=== PATIENT | female | born 1985 ===

== ENCOUNTER 2021-02-10 23:43 | Emergency (ER) | payer OTHER, MEDICAID, SELFPAY ==
[2021-02-10 23:40] VITALS: BMI 19.3
[2021-02-10 23:53] VITALS: BP 131/99; PULSE 88; RESP 18; TEMP 36.8; O2SAT 100
--- NOTE | 2021-02-11 00:36 | ED_ITS ---
HPI - Psych <Rosas Boo MD - Last Filed: 02/11/21 17:57> General Chief Complaint: Psychiatric Symptoms Stated Complaint: Strange behavior, Cobative Time Seen by Provider: 02/10/21 23:53 Source: patient and police Mode of arrival: Ambulatory History of Present Illness HPI Narrative: Patient brought in by police for altered mental status. [employer]ba business development officer gave me a report that [facility] received call that a car was driving the wrong way [address]. It was speeding and going through stop signs. sba business development officer states that patient was yelling out the window at him during pursued. Officer notice a [place] headlight movement coming towards him, the vehicle then but least word into the center turn fili almost hitting the officers patrol car. Officer said that patient was yelling that people were try ing to kill her and that her daughter was . She did press puller and stated to him that she is being chased and followed. She pointed to a car near them and states that they was chasing her. sba business development officer asked the occupant of the other vehicle and they stated they have no idea who the patient is. Patient then drove away from the police officers and they had to pursue her again. At 1 point. Spikes were thrown on the road to stop her car. At 1 point officer stated that patient spoke to her in a way that made him bleed she was no longer speaking to him and actually try to communicate with her child. While at the police department she told the officer that she was acting like a psycho and needed to speak to someone at the hospital. The police report also noted that she saw things that were not there. They were concerned possibly patient was under the influence and brought her to the station. Breathalyzer was normal. She asked to use the restroom before being brought here. Officer stated that she went from a erratic behavior to talking in different voice tones, she did tell them that next week would be the birthday of her daughter that this past September. February 22 would be her birthday. She also stated that similar event happened with the loss of her very 1st child a son. Speaking with patient myself, she does recall what happened. She denies SI or HI. She states she was released from [facility] 2 weeks ago for substance abuse. She states she has not taken anything or done anything since then. She states she is very anxious and very traumatized and emotional about the loss of her daughter. sba business development officer provided report. They note that she agrees to mental health treatment and that she still presents a danger to the public and herself. Police report is placed in her medical file Related Data Allergies Allergy/AdvReac Type Severity Reaction Status Date / Time No Known Drug Allergies Allergy Verified 02/11/21 00:13 Patient History <Rosas Boo MD - Last Filed: 02/11/21 17:57> Social History Smoking Status: Current every day smoker Smoking Status: Current every day smoker alcohol intake frequency: 0-2 drinks per day Substance Use Type: does not use Exam <Rosas Boo MD - Last Filed: 02/11/21 17:57> Initial Vital Signs Initial Vital Signs: Vital Signs Temperature 98.2 F 02/10/21 23:53 Pulse Rate 88 02/10/21 23:53 Respiratory Rate 18 02/10/21 23:53 Blood Pressure 131/99 H 02/10/21 23:53 Pulse Oximetry 100 02/10/21 23:53 <Roland Do DO - Last Filed: 02/11/21 13:08> Initial Vital Signs Initial Vital Signs: Vital Signs Temperature 98.2 F 02/10/21 23:53 Pulse Rate 88 02/10/21 23:53 Respiratory Rate 18 02/10/21 23:53 Blood Pressure 131/99 H 02/10/21 23:53 Pulse Oximetry 100 02/10/21 23:53 Course <Rosas Boo MD - Last Filed: 02/11/21 17:57> Course Course Narrative: 0700 s/o dr do, will need CRANBERRY GROWER eval and disposition, patient has been on a locked seclusion. Needs protocol face to face as well as reordering for seclusion Orders Ordered: ED Orders 02/11/21 09:14 Urinalysis and Microscopic Stat Urine Culture Stat Urine Drug Screen, Rapid Stat Vital Signs Vital signs: Vital Signs - 8 hr 02/11/21 13:21 Pulse Rate 98 H Respiratory Rate 24 Blood Pressure 132/98 H Pulse Oximetry 99 <Roland Do DO - Last Filed: 02/11/21 13:08> Orders Ordered: ED Orders 02/11/21 09:14 Urinalysis and Microscopic Stat Urine Culture Stat Urine Drug Screen, Rapid Stat Vital Signs Vital signs: Vital Signs - 8 hr 02/11/21 13:21 Pulse Rate 98 H Respiratory Rate 24 Blood Pressure 132/98 H Pulse Oximetry 99 MDM - Psych <Rosas Boo MD - Last Filed: 02/11/21 17:57> Lab Data Result diagrams: 02/11/21 00:32 02/11/21 00:32 Labs: Lab Results 02/11/21 02/11/21 02/11/21 Range/Units 00:32 00:32 00:32 WBC 6.5 (4.5-11.0) X10^3/uL RBC 3.92 L (4.0-5.2) X10^6/uL Hgb 12.0 (12.0-16.0) g/dL Hct 36.4 (36-46) % MCV 92.7 (80-100) fL MCH 30.6 (26-34) PG MCHC 33.0 (30-36) % RDW 13.6 (11.6-14.8) % Plt Count 324 (150-400) X10^3/uL Neut % (Auto) 69.5 (50-75) % Lymph % (Auto) 22.4 L (25-40) % Brooke % (Auto) 6.5 (3-14) % Eos % (Auto) 0.7 L (2-4) % Baso % (Auto) 0.9 (0-2) % Neut # (Auto) 4500 (3210-3496) /uL Lymph # (Auto) 1400 (3556-7294) /uL Brooke # (Auto) 400 (0-900) /uL Eos # (Auto) 0 (0-450) /uL Baso # (Auto) 100 (0-100) /uL Sodium 136 L (137-145) mmol/L Potassium 4.1 (3.4-5.1) mmol/L Chloride 100 (98-107) mmol/L Carbon Dioxide 30 (22-32) mmol/L BUN 11 (7-17) mg/dL Creatinine 0.59 (0.52-1.04) mg/dL Estimated GFR > 60.0 (>60) mL/min BUN/Creatinine Ratio 18.6 (6-22) Glucose 108 H (70-100) mg/dL Calcium 9.4 (8.4-10.2) mg/dL Total Bilirubin 0.2 (0.2-1.3) mg/dL AST 31 (14-36) IU/L ALT 29 (<35) IU/L Alkaline Phosphatase 73 (38-126) U/L Total Protein 7.5 (6.3-8.2) g/dL Albumin 4.4 (3.5-5.0) g/dL Globulin 3.1 (1.7-4.1) g/dL Albumin/Globulin Ratio 1.4 (1.0-2.8) TSH 1.43 (0.47-4.68) uIU/mL Urine Color Urine Appearance Urine pH (4.5-8.0) Ur Specific [place] (1.000-1.035) Urine Protein (Negative) Urine Glucose (UA) (Negative) g/dL Urine Ketones (NEGATIVE) Urine Occult Blood (Negative) Urine Nitrate (Negative) Urine Bilirubin (NEGATIVE) Urine Urobilinogen (0.2) E.U./dL Ur Leukocyte Esterase (NEGATIVE) Urine RBC (0-5/HPF) Urine WBC (0-5/HPF) Ur Squamous Epith Cells (0-5/HPF) Urine Bacteria (None) Ur Culture Indicated? Urine Test (Negative) U Opiates 300ng/mL cut (Negative) Ur Oxycodone Screen (Negative) Urine Methadone Screen (Negative) Ur Barbiturates Screen (Negative) U Tricyclic Antidepress (Negative) Ur Phencyclidine Scrn (Negative) Ur Amphetamines Screen (Negative) U Methamphetamines Scrn (Negative) Ur MDMA Scrn (Ecstasy) (Negative) U Benzodiazepines Scrn (Negative) Urine Cocaine Screen (Negative) U Marijuana (THC) Screen (Negative) Ethyl Alcohol < 10 ( - 10) mg/dL 02/11/21 02/11/21 02/11/21 Range/Units 08:55 09:14 09:14 WBC (4.5-11.0) X10^3/uL RBC (4.0-5.2) X10^6/uL Hgb (12.0-16.0) g/dL Hct (36-46) % MCV (80-100) fL MCH (26-34) PG MCHC (30-36) % RDW (11.6-14.8) % Plt Count (150-400) X10^3/uL Neut % (Auto) (50-75) % Lymph % (Auto) (25-40) % Brooke % (Auto) (3-14) % Eos % (Auto) (2-4) % Baso % (Auto) (0-2) % Neut # (Auto) (6765-1417) /uL Lymph # (Auto) (9652-1481) /uL Brooke # (Auto) (0-900) /uL Eos # (Auto) (0-450) /uL Baso # (Auto) (0-100) /uL Sodium (137-145) mmol/L Potassium (3.4-5.1) mmol/L Chloride (98-107) mmol/L Carbon Dioxide (22-32) mmol/L BUN (7-17) mg/dL Creatinine (0.52-1.04) mg/dL Estimated GFR (>60) mL/min BUN/Creatinine Ratio (6-22) Glucose (70-100) mg/dL Calcium (8.4-10.2) mg/dL Total Bilirubin (0.2-1.3) mg/dL AST (14-36) IU/L ALT (<35) IU/L Alkaline Phosphatase (38-126) U/L Total Protein (6.3-8.2) g/dL Albumin (3.5-5.0) g/dL Globulin (1.7-4.1) g/dL Albumin/Globulin Ratio (1.0-2.8) TSH (0.47-4.68) uIU/mL Urine Color Yellow Urine Appearance Cloudy Urine pH 6.5 (4.5-8.0) Ur Specific [place] 1.015 (1.000-1.035) Urine Protein Negative (Negative) Urine Glucose (UA) Negative (Negative) g/dL Urine Ketones Negative (NEGATIVE) Urine Occult Blood Trace-intact (Negative) Urine Nitrate Positive H (Negative) Urine Bilirubin Negative (NEGATIVE) Urine Urobilinogen 0.2 (0.2) E.U./dL Ur Leukocyte Esterase 1+ H (NEGATIVE) Urine RBC 1-5/hpf (0-5/HPF) Urine WBC 30-100/hpf H (0-5/HPF) Ur Squamous Epith Cells 1-5 /hpf (0-5/HPF) Urine Bacteria Many (>30) H (None) Ur Culture Indicated? Specimen cultured Urine Test Negative (Negative) U Opiates 300ng/mL cut Negative (Negative) Ur Oxycodone Screen Negative (Negative) Urine Methadone Screen Negative (Negative) Ur Barbiturates Screen Negative (Negative) U Tricyclic Antidepress Negative (Negative) Ur Phencyclidine Scrn Negative (Negative) Ur Amphetamines Screen Positive H (Negative) U Methamphetamines Scrn Positive H (Negative) Ur MDMA Scrn (Ecstasy) Negative (Negative) U Benzodiazepines Scrn Negative (Negative) Urine Cocaine Screen Negative (Negative) U Marijuana (THC) Screen Negative (Negative) Ethyl Alcohol ( - 10) mg/dL <Roland Do, DO - Last Filed: 02/11/21 13:08> Lab Data Attestation: I reviewed the patient's lab results. Labs: Lab Results 02/11/21 02/11/21 02/11/21 Range/Units 00:32 00:32 00:32 WBC 6.5 (4.5-11.0) X10^3/uL RBC 3.92 L (4.0-5.2) X10^6/uL Hgb 12.0 (12.0-16.0) g/dL Hct 36.4 (36-46) % MCV 92.7 (80-100) fL MCH 30.6 (26-34) PG MCHC 33.0 (30-36) % RDW 13.6 (11.6-14.8) % Plt Count 324 (150-400) X10^3/uL Neut % (Auto) 69.5 (50-75) % Lymph % (Auto) 22.4 L (25-40) % Brooke % (Auto) 6.5 (3-14) % Eos % (Auto) 0.7 L (2-4) % Baso % (Auto) 0.9 (0-2) % Neut # (Auto) 4500 (4133-4807) /uL Lymph # (Auto) 1400 (7924-3442) /uL Brooke # (Auto) 400 (0-900) /uL Eos # (Auto) 0 (0-450) /uL Baso # (Auto) 100 (0-100) /uL Sodium 136 L (137-145) mmol/L Potassium 4.1 (3.4-5.1) mmol/L Chloride 100 (98-107) mmol/L Carbon Dioxide 30 (22-32) mmol/L BUN 11 (7-17) mg/dL Creatinine 0.59 (0.52-1.04) mg/dL Estimated GFR > 60.0 (>60) mL/min BUN/Creatinine Ratio 18.6 (6-22) Glucose 108 H (70-100) mg/dL Calcium 9.4 (8.4-10.2) mg/dL Total Bilirubin 0.2 (0.2-1.3) mg/dL AST 31 (14-36) IU/L ALT 29 (<35) IU/L Alkaline Phosphatase 73 (38-126) U/L Total Protein 7.5 (6.3-8.2) g/dL Albumin 4.4 (3.5-5.0) g/dL Globulin 3.1 (1.7-4.1) g/dL Albumin/Globulin Ratio 1.4 (1.0-2.8) TSH 1.43 (0.47-4.68) uIU/mL Urine Color Urine Appearance Urine pH (4.5-8.0) Ur Specific [place] (1.000-1.035) Urine Protein (Negative) Urine Glucose (UA) (Negative) g/dL Urine Ketones (NEGATIVE) Urine Occult Blood (Negative) Urine Nitrate (Negative) Urine Bilirubin (NEGATIVE) Urine Urobilinogen (0.2) E.U./dL Ur Leukocyte Esterase (NEGATIVE) Urine RBC (0-5/HPF) Urine WBC (0-5/HPF) Ur Squamous Epith Cells (0-5/HPF) Urine Bacteria (None) Ur Culture Indicated? Urine Test (Negative) U Opiates 300ng/mL cut (Negative) Ur Oxycodone Screen (Negative) Urine Methadone Screen (Negative) Ur Barbiturates Screen (Negative) U Tricyclic Antidepress (Negative) Ur Phencyclidine Scrn (Negative) Ur Amphetamines Screen (Negative) U Methamphetamines Scrn (Negative) Ur MDMA Scrn (Ecstasy) (Negative) U Benzodiazepines Scrn (Negative) Urine Cocaine Screen (Negative) U Marijuana (THC) Screen (Negative) Ethyl Alcohol < 10 ( - 10) mg/dL 02/11/21 02/11/21 02/11/21 Range/Units 08:55 09:14 09:14 WBC (4.5-11.0) X10^3/uL RBC (4.0-5.2) X10^6/uL Hgb (12.0-16.0) g/dL Hct (36-46) % MCV (80-100) fL MCH (26-34) PG MCHC (30-36) % RDW (11.6-14.8) % Plt Count (150-400) X10^3/uL Neut % (Auto) (50-75) % Lymph % (Auto) (25-40) % Brooke % (Auto) (3-14) % Eos % (Auto) (2-4) % Baso % (Auto) (0-2) % Neut # (Auto) (0982-7359) /uL Lymph # (Auto) (7370-8247) /uL Brooke # (Auto) (0-900) /uL Eos # (Auto) (0-450) /uL Baso # (Auto) (0-100) /uL Sodium (137-145) mmol/L Potassium (3.4-5.1) mmol/L Chloride (98-107) mmol/L Carbon Dioxide (22-32) mmol/L BUN (7-17) mg/dL Creatinine (0.52-1.04) mg/dL Estimated GFR (>60) mL/min BUN/Creatinine Ratio (6-22) Glucose (70-100) mg/dL Calcium (8.4-10.2) mg/dL Total Bilirubin (0.2-1.3) mg/dL AST (14-36) IU/L ALT (<35) IU/L Alkaline Phosphatase (38-126) U/L Total Protein (6.3-8.2) g/dL Albumin (3.5-5.0) g/dL Globulin (1.7-4.1) g/dL Albumin/Globulin Ratio (1.0-2.8) TSH (0.47-4.68) uIU/mL Urine Color Yellow Urine Appearance Cloudy Urine pH 6.5 (4.5-8.0) Ur Specific [place] 1.015 (1.000-1.035) Urine Protein Negative (Negative) Urine Glucose (UA) Negative (Negative) g/dL Urine Ketones Negative (NEGATIVE) Urine Occult Blood Trace-intact (Negative) Urine Nitrate Positive H (Negative) Urine Bilirubin Negative (NEGATIVE) Urine Urobilinogen 0.2 (0.2) E.U./dL Ur Leukocyte Esterase 1+ H (NEGATIVE) Urine RBC 1-5/hpf (0-5/HPF) Urine WBC 30-100/hpf H (0-5/HPF) Ur Squamous Epith Cells 1-5 /hpf (0-5/HPF) Urine Bacteria Many (>30) H (None) Ur Culture Indicated? Specimen cultured Urine Test Negative (Negative) U Opiates 300ng/mL cut Negative (Negative) Ur Oxycodone Screen Negative (Negative) Urine Methadone Screen Negative (Negative) Ur Barbiturates Screen Negative (Negative) U Tricyclic Antidepress Negative (Negative) Ur Phencyclidine Scrn Negative (Negative) Ur Amphetamines Screen Positive H (Negative) U Methamphetamines Scrn Positive H (Negative) Ur MDMA Scrn (Ecstasy) Negative (Negative) U Benzodiazepines Scrn Negative (Negative) Urine Cocaine Screen Negative (Negative) U Marijuana (THC) Screen Negative (Negative) Ethyl Alcohol ( - 10) mg/dL MDM Narrative Medical decision making narrative: Dr do: received turnover. Reviewed patient's history and physical and labs. Patient has been somewhat agitated this morning about needing to stay here in the emergency department. She has expressed multiple times she is not suicidal. Not homicidal. Does have a GCS of 15. Urine is positive for methamphetamine. She was seen by social work. Is determined that she was not a danger to herself. Unfortunately does not meet the criteria for grave disability. I do not think that there is a reason to involuntarily commit her to the hospital. Patient would like to be discharged. She does have a plan as to what is going to happen after she is discharged. She was given resources and follow-up instructions. Restraint Uacr-[id number] <Rosas Boo MD - Last Filed: 02/11/21 17:57> Restraint Bsgd-cr-Fnoq Evaluation Tyat-hl-Hzka #1: Date: 02/11/21 Time: 00:45 Patient Appearance: Disheveled (Patient with rapid speech with psychotic features/paranoia) Level of Consciousness: Alert and Follows Commands (However, threatening to leave) Speech Pattern: Pressured Mood Description: Anxious, Apprehensive, Labile and Tearful Ability to Follow Directions: Fair Hallucination Type: Visual Thought Process: Disorganized Respirations: Normal respiratory rate Cardiac: Regular Rate Circulation: Moves all extremities Behavior necessitating restraint: Paranoid/Delusional Other risks: Patient is a flight risk, posing danger to others, driving wrong direction for 3 miles at a high rate of speed. Trying to get away from the police. Restraint risks explained to patient: Yes Restraint risks explained to family: No (No family present) Reaction to Intervention: Other (Patient is in seclusion, no restraints on limbs) Additional Comments: Patient is not on any restraints, she is placed in seclusion has high risk for leaving and would be risk of danger to herself and others. Please see police report. [id number]-[id number] #2: Date: 02/11/21 Time: 03:00 Additional Comments: Patient is not in restraints. Patient is in seclusion at this time. Patient is sleeping. Again patient a flight risk and has demonstrated prior to arrival danger to others and to self. Fpqw-zw-Xskm #3: Date: 02/11/21 Time: 05:39 Additional Comments: Patient is not in restraints, never had been in restraints or sedated. Is sleeping at this time. Is in seclusion only as she is a flight risk being a danger to others and herself. Vljs-ug-Gfls #4: Date: 02/11/21 Time: 06:55 Additional Comments: Patient remains resting comfortably. In no distress. Patient remains in no restraints. Is in seclusion only. Has not been combative however is high Flight risk being a danger to others and herself, needs assessment by manager social work this morning. Discharge Plan Departure Patient Disposition: Home Clinical Impression: Acute psychosis, Methamphetamine abuse Instructions: Substance Use Disorder Activity Restrictions/Additional Instructions: Your not to drive for the next 24 hours or in the future if you partake in any intoxicating substances. You can contact the health resource is coordinator here at the hospital at [phone] to establish a primary doctor. You can return to the emergency department at any point for new or worsening symptoms.
[2021-02-11 00:49] LABS: Add Manual Diff / Slide Review NO; Basophils Absolute Auto 100 /uL (0-100); Basophils Percent Auto 0.9 % (0-2); Eosinophils Absolute Auto 0 /uL (0-450); Eosinophils Percent Auto 0.7 % (2-4); Hematocrit 36.4 % (36-46); Lymphocytes Absolute Auto 1400 /uL (1100-4500); Lymphocytes Percent Auto 22.4 % (25-40); Mean Corpuscular Hemoglobin 30.6 PG (26-34); Mean Corpuscular Volume 92.7 fL (80-100); Monocytes Absolute Auto 400 /uL (0-900); Monocytes Percent Auto 6.5 % (3-14); Neutrophils Absolute Auto 4500 /uL (1500-7000); Neutrophils Percent Auto 69.5 % (50-75); Platelet Count 324 X10^3/uL (150-400); Red Blood Cell Count 3.92 X10^6/uL (4.0-5.2); Red Cell Distribution Width 13.6 % (11.6-14.8); White Blood Cell Count 6.5 X10^3/uL (4.5-11.0)
--- NOTE | 2021-02-11 00:52 | PC.NURSE ---
Pt is very worried about her 9 year old son, who is with her mother in [place]. Pt states that she must get back to him tonight, pt states she will get help in the morning and she cannot stay here tonight. Pt given her phone to call her family. BRENDA Lindo, is at bedside. Dr Boo notified of above.
[2021-02-11 00:56] LABS: Alanine Aminotransferase 29 IU/L (<35); Albumin 4.4 g/dL (3.5-5.0); Albumin Globulin Ratio 1.4 (1.0-2.8); Alkaline Phosphatase 73 U/L (38-126); Aspartate Aminotransferase 31 IU/L (14-36); BUN Creatinine Ratio 18.6 (6-22); Bilirubin Total 0.2 mg/dL (0.2-1.3); Blood Urea Nitrogen 11 mg/dL (7-17); Calcium 9.4 mg/dL (8.4-10.2); Carbon Dioxide 30 mmol/L (22-32); Chloride 100 mmol/L (98-107); Estimated Glomerular Filt Rate > 60.0 mL/min (>60); Ethanol (ETOH) < 10 mg/dL; Globulin 3.1 g/dL (1.7-4.1); Glucose 108 mg/dL (70-100); HEMOLYSIS < 15 (0-50); Potassium 4.1 mmol/L (3.4-5.1); Sodium 136 mmol/L (137-145); Total Protein 7.5 g/dL (6.3-8.2)
--- NOTE | 2021-02-11 01:17 | PC.NURSE ---
Speaking on hospital provided phone, door is now closed.
[2021-02-11 02:49] LABS: TSH w/ Reflex to FT4 1.43 uIU/mL (0.47-4.68)
--- NOTE | 2021-02-11 03:07 | PC.NURSE ---
Pt has made repeated attempts to leave the department. She as asked to go outside to smoke a cigarette and has asked to go to her car to obtain her Suboxone. Pt remains flight risk. Door is locked for safety pending mental health eval. Pt is currently lying down with eyes closed, resps even/unlabored.
[2021-02-11 09:00] VITALS: BP 118/90; PULSE 98; RESP 14; O2SAT 100
[2021-02-11 09:13] LABS: Pregnancy Test Urine Negative (Negative)
[2021-02-11 09:18] LABS: Appearance Urine UA CLOUDY; Bilirubin Urine UA NEGATIVE (NEGATIVE); Color Urine UA YELLOW; Glucose Urine UA NEGATIVE (Negative); Ketones Urine UA NEGATIVE (NEGATIVE); Leukocyte Esterase Urine UA 1+ (NEGATIVE); Nitrite Urine UA POSITIVE (Negative); Occult Blood Urine UA TRACE-INTACT (Negative); Protein Urine UA NEGATIVE (Negative); Specific Gravity Urine UA 1.015 (1.000-1.035); Urobilinogen Urine UA 0.2 E.U./dL (0.2)
[2021-02-11 09:25] LABS: UR Morphine/Opiate cutoff 300 Negative (Negative); Ur Creatinine Normal (Normal); Ur Specific Gravity Normal (Normal); Urine Cocaine Negative (Negative); Urine Tetrahydrocannabinol Negative (Negative); Urine pH Normal (Normal)
[2021-02-11 09:26] LABS: Urine Amphetamines Positive (Negative); Urine Barbiturates Negative (Negative); Urine Benzodiazepines Negative (Negative); Urine MDMA Negative (Negative); Urine Methadone Negative (Negative); Urine Methamphetamines Positive (Negative); Urine Oxycodone Negative (Negative); Urine Phencyclidine Negative (Negative); Urine Tricyclic Antidepressant Negative (Negative)
[2021-02-11 09:30] LABS: Bacteria Urine Many (>30); Culture Indicated Urine Specimen Cultured; RBC Urine 1-5/HPF (0-5/HPF); Squamous Epithelial Cell Urine 1-5 /HPF (0-5/HPF); WBC Urine 30-100/HPF (0-5/HPF); pH Urine UA 6.5 (4.5-8.0)
--- NOTE | 2021-02-11 10:34 | PC.NURSE ---
Patient says she doesnt have time to wait around, says I am not a maggot of the earth. I matter, my son matters.
--- NOTE | 2021-02-11 10:46 | PC.NURSE ---
pt is able to move about room freely.
--- NOTE | 2021-02-11 11:32 | PC.NURSE ---
patient comes out of the room and stands at the nursing station. Pt refuses to answer me and stares angrily at me. She states she cannot wait anymore and her only option is to leave. Doctor came to talk with patient back in her room and informed her she has to stay to be evaluated by social work at noon because of the events that happened last night. Patient states she is sick needing saboxone and her son needs her help
--- NOTE | 2021-02-11 11:47 | PC.NURSE ---
patient stormed out of room claiming her bones are hurting her and she needs her suboxone. States if we were real medical staff we would understand she needs her suboxone. Nurse updated patient that she must wait for the health care social worker.
--- NOTE | 2021-02-11 12:13 | PC.NURSE ---
Patient angry and coming out of room still, claiming son is at home alone and needs her. I keep informing the patient that the nephrology social worker is getting report and then will come talk with her. Patient comes out of room 3 more times anxious for nephrology social worker to visit.
--- NOTE | 2021-02-11 12:20 | PC.NURSE ---
talking with social and human services assistant
--- NOTE | 2021-02-11 12:26 | PC.NURSE ---
I watched patient walking around room and knelt down before falling. States she hurt her tailbone and is sitting back in bed.
--- NOTE | 2021-02-11 12:28 | PC.NURSE ---
Patient stomping loudly in room. I told her she cant be hurting herself or hitting things. States stomping helps my hurting bones
--- NOTE | 2021-02-11 13:10 | CM.SWNOTE ---
OLDER ADULT SOCIAL WORK SPECIALIST Assessment OLDER ADULT SOCIAL WORK SPECIALIST - Set Up And Charger Assessment OLDER ADULT SOCIAL WORK SPECIALIST/Set Up And Charger Assessment Time Spent with Patient Start date 02/11/21 Visit Start Time 12:10 End date 02/11/21 Visit End Time 12:30 Total time Care Management spent on 20 patient visit-in minutes Mental Health Screening Include Onset, Duration, Intensity Presenting Problem Patient presents to the ED via [employer] after being booked into custody for erratic driving on the wrong side of the road. 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 Patient's toxicology is positive for amphetamine and methamphetamine. Patient Strengths Patient wants to seek help Current Behavioral Health Provider(s) Patient endorses she is Include Facility, Provider, Ph. # prescribed suboxone from [email or web address] in [place], [place] Psych. Hx Mental Health and Chemical Patient endorses PTSD and ADHD Dependency Patient endorses Methamphetamine use Family Hx of Behavioral Abuse Patient endorses the loss of her son and daughter, patient endorses that she has a son that is currently with her mom and her mom is missing work right now to care for her son. Psychiatric Hospitalizations (date(s)/ Patient endorses hx of location) hospitalization and [facility] inpatient treatment but does not want to share information with [facility] [place] information & Support Patient is 35 y/o who resides Systems in [place], [place]. Patient endorses that she has family as supports and outpatient providers in [place], [place] School/Work None reported Substance Abuse Screening Include Onset, Duration, Intensity History of Withdrawal? Seizures? Shaking and sweating Legal Concerns Legal Matters - Outstanding Issues Possible pending charges from [employer] Mental Status Orientation (Person/Place/Time) A/Ox4 Stated Mood withdrawing Affect (Congruent with Mood?) Euphoric Thought Content - Specify/Describe None reported at the time of Obsessions, Delusions, Hallucinations assessment. Last evening the [employer] report endorse that patient was talking to her children. Thought Processes (Pzxdnhy-Myymyhta-Lyko Perseveration Jqptdgsu-Qrkwblva-Ljaxvqtghr- Wnlfcyvfmgalsi-Xeehaqi-Uupvebgkjlyr- Thought Blocking) Speech (Kcgcoj-Eshf-Gqaewel-Rapid-Soft- Rapid/normal Loud-Pressured) Motor (Dclysu-Oatctxwsk-Raeg-Other) excessive Insight (Jbfx-Vmme-Hxua/Limited) fair/limited Judgement (Ldes-Icaw-Zlrm/Limited) poor/limited Impulse Control (Adequate-Impaired) adequate during assessment Memory (Opayewdpe-Frwmie-Fsamiw, somewhat intact Impaired-Intact) Concentration (Intact-Impaired) intact Attention (Intact-Impaired) intact Behavior (Appropriate-Inappropriate) somewhat inappropriate. Patient does not want to meet with OLDER ADULT SOCIAL WORK SPECIALIST. OLDER ADULT SOCIAL WORK SPECIALIST provides patient with OLDER ADULT SOCIAL WORK SPECIALIST's role and that OLDER ADULT SOCIAL WORK SPECIALIST is to meet with patient to discuss safe plan for patient. Additional Comment Patient is distracted during assessment and focuses on wanting to leave. Risk Assessment Suicidal Ideation (Plan) No Homicidal Ideation (Plan) No Comment Patient denies HI and SI. Patient endorses that she was not trying to hurt herself or anyone last night when she was driving on the wrong side of the road. Intervention Intervention OLDER ADULT SOCIAL WORK SPECIALIST enters room and meets with patient. Patient endorses that she does not want to be at this hospital and wants to get home to her son. Patient endorses that her mother is caring for her son right now and missing work. Patient endorses her anxiety and withdrawals and reports that her suboxone prescription is in her vehicle and she believes her vehicle is just around the corner. Patient endorses that her plan is to take her suboxone, go to [place] to her son and go to [facility] where she is familiar and plans to get dual diagnosis treatment for her trauma and her substance use. Patient is not a harm to herself and others and endorses she wants to safely get to her son. Patient endorses she missed her suboxone treatment appointment today. Patient denies any support or resources from this OLDER ADULT SOCIAL WORK SPECIALIST and endorses she wants to go back to [place] where she is connected to services. Patient denies providing further information to OLDER ADULT SOCIAL WORK SPECIALIST regarding her current providers and history. Patient states that she does not know anyone at this [facility] or in this town and she does not want to divulge any information. Patient endorses that her mother knows she is at the hospital. OLDER ADULT SOCIAL WORK SPECIALIST calls [employer] and it is reported that patient's car was not impounded and should be located by [employer]. OLDER ADULT SOCIAL WORK SPECIALIST calls [employer] and it is reported that they do not locate the vehicle. BRENDA Vargas is locating the vehicle near the premises upon writing this report. Patient continues to present with a lot of anxiety about leaving this hospital and taking her suboxone. It is the opinion of this OLDER ADULT SOCIAL WORK SPECIALIST that patient is safe to d/c to the community to return to her home and to connect with her with current providers. OLDER ADULT SOCIAL WORK SPECIALIST reviews the above with ED provider Dr. Do who indicates agreement and understanding. Dr. Do to compose d/c paperwork. Plan RA Plan Patient to d/c when medically clear and to seek assistance her outpatient providers in [place]. GALEN Batres
[2021-02-11 13:21] VITALS: BP 132/98; PULSE 98; RESP 24; O2SAT 99
--- NOTE | 2021-02-11 17:21 | PC.NURSE ---
restraint order not renewed.
== END 2021-02-11 13:21 | disposition home or self-care (01) ==
PROVIDERS: Emergency Medicine; Emergency Provider Emergency Medicine
DX: F23 Brief psychotic disorder (principal); F15.10 Other stimulant abuse, uncomplicated
CPT/HCPCS: 36415; 80053; 80305; 80320; 81001; 81025; 84443; 85025; 87077; 87086; 87186; 99285